=== PATIENT | male | born 1975 | race American Indian/Alaskan Native ===

== ENCOUNTER 2022-01-17 00:33 | Emergency (ER) | payer SELFPAY ==
[2022-01-17] MEDS ORDERED: ONDANSETRON 4 MG/2 ML INJ IV ONE (00:44)
[2022-01-17] MEDS ORDERED: HYDROmorphone 1 MG/1 ML INJ IV ONE (00:44)
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
[2022-01-17] MEDS ORDERED: LACTATED RINGERS 1,000 ML IV ONE (01:09)
[2022-01-17 01:10] VITALS: BP 148/110
[2022-01-17] MEDS ORDERED: ceFAZolin/NS 1 GM/50 ML 1 GM/50 ML BAG IV NR (02:00)
== END 2022-01-17 02:00 | disposition hospice, inpatient (51) ==
LOC: ED 00:33
DX: T23.202A Burn of second degree of left hand, unspecified site, initial encounter (principal); T23.201A Burn of second degree of right hand, unspecified site, initial encounter; X08.8XXA Exposure to other specified smoke, fire and flames, initial encounter; Y93.89 Activity, other specified; Y92.89 Other specified places as the place of occurrence of the external cause; Y99.8 Other external cause status
CPT/HCPCS: 96361; 96374; 96375; 99284; J1170; J2405; J7120